=== PATIENT | female | born 1990 | race Caucasian/White ===

== ENCOUNTER 2017-06-23 11:45 | Emergency (ER) | payer SELFPAY ==
[~2017-06-23] VITALS: Ht 167.6 cm; Wt 80.0 kg
[~2017-06-23 11:45] MED LIST: DOXYCYCLINE 10100 MG PO; METROGEL-VAGINA0.75% VG
[2017-06-23 11:48] VITALS: BP 142/80; PULSE 95; TEMP 98.2
[2017-06-23 13:01] LABS: BASO % 0.2 % (0.0-2.0); EOS % 0.3 % (0-4.0); GRAN # 6.5 (1.4-6.5); GRAN % 62.9 % (42.2-75.2); HEMATOCRIT 44.8 % (37.0-47.0); LYMPH # 3.2 (1.2-3.4); LYMPH % 30.8 % (20.0-51.0); MEAN CELL VOLUME 91 fl (80.0-100.0); MEAN CORPUSCULAR HEMOGLOBIN 31 pg (27.0-31.0); MEAN CORPUSCULAR HGB CONC 34 g/dl (33.0-37.0); MEAN PLATELET VOLUME 8.9 fl (7.4-10.4); MONO # 0.6 (0.1-0.6); MONO % 5.5 % (1.7-9.3); PLATELET COUNT 379 K/mm3 (130-400); RED BLOOD COUNT 4.92 M/mm3 (4.10-5.30); REDCELL DISTRIBUTION WIDTH-CV 12.9 % (11.5-14.5)
[2017-06-23 13:27] LABS: COLLECTION METHOD CLEAN CATCH
[2017-06-23 13:34] LABS: MUCOUS Present /lpf; PH 6 (5-8); URINE APPEARANCE Clear; URINE BACTERIA None Seen /hpf; URINE BILIRUBIN Negative (NEGATIVE); URINE BLOOD 1+ (NEGATIVE); URINE COLOR Yellow; URINE GLUCOSE Negative (NEGATIVE); URINE KETONE Negative (NEGATIVE); URINE LEUKOCYTE ESTERASE Negative (NEGATIVE); URINE NITRATE Negative (NEGATIVE); URINE PROTEIN(semi-quant) Negative (NEGATIVE); URINE UROBILINOGEN Negative (NEGATIVE)
== END 2017-06-23 13:56 | disposition home or self-care (01) ==
LOC: COL.ER 11:45
PROVIDERS: Family Medicine
DX: O03.4 Incomplete spontaneous abortion without complication (principal); Z3A.00 Weeks of gestation of pregnancy not specified

== ENCOUNTER 2018-11-24 18:26 | Emergency (ER) | payer SELFPAY ==
[~2018-11-24] VITALS: Ht 167.6 cm; Wt 77.3 kg
[2018-11-24 18:33] VITALS: BP 151/91; TEMP 97.7
[2018-11-24] MEDS ORDERED: DOXYCYCLINE HY100 MG PO (20:25)
[2018-11-24 20:58] VITALS: PULSE 95
== END 2018-11-24 21:02 | disposition home or self-care (01) ==
LOC: COL.ER 18:26
DX: L02.412 Cutaneous abscess of left axilla (principal); L73.2 Hidradenitis suppurativa; F17.210 Nicotine dependence, cigarettes, uncomplicated